=== PATIENT | female | born 2000 | race Caucasian/White ===

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

== ENCOUNTER 2019-01-08 21:14 | Day surgery (SDC) | payer BC ==
[2019-01-08 22:06] VITALS: BMI 30.7
[2019-01-08] MEDS ORDERED: hydrALAZINE 20 MG/ML VIAL SLOW IVP PRN (22:14)
[2019-01-08] MEDS ORDERED: Acetaminophen 500 MG TAB PO SCH (22:30)
[2019-01-08 23:31] LABS: Bilirubin Negative (Negative); Blood, Urine 2+ (Negative); Clarity Turbid (Clear); Glucose, Urine (Dipstick) Normal (Negative); Leukocyte 500 Leu/uL (Negative); Nitrite Negative (Negative); Protein, Urine (Dipstick) 100 mg/dL (Neg-Trace); Squamous Epithelial 0-3 HPF (0-3); Urobilinogen Normal mg/dL (Less than 2); WBC/HPF Greater than 50 HPF (0-3)
--- NOTE | 2019-01-08 23:37 | PDOC.FPRHP ---
- History of Present Illness Chief Complaint: Abdominal pain History of Present Illness: 18 year old at 30.0 wks presents with a 1 day history of right lower back pain that radiates to right lower quadrant and groin. Patient states it came on last night and describes it as a "pressure-like" pain associated with abdominal tightening. The pain last night lasted for about an hour before resolving after drinking cold water. Patient states she woke up this morning with the same pain and it has not resolved. Patient did not take any tylenol. She tried drinking water, but it did not help. She states that no particular movements worsen the pain. She denies any recent trauma or muscular strains. Patient endorses history of UTI x2 during this . She states that this does not feel like her past UTI's. She denies any dysuria or urinary hesitancy. Patient denies any vaginal bleeding, vaginal discharge, LoF. She denies any fever or chills. - Allergies/Adverse Reactions Allergies Allergy/AdvReac Type Severity Reaction Status Date / Time Sulfa (Sulfonamide Allergy Mild Nausea Verified 01/08/19 22:03 Antibiotics) - Home Medications Medication Instructions Recorded Confirmed Type Pnv No.95/Ferrous Fum/Folic AC 1 tab PO DAILY 12/24/18 12/24/18 History [ Caplet] - History PMHx: PSHx: FHx: Social: - Vital signs BP: [] HR: [] RR: [] Tmax: [] Pox: []% on [] Wt: [] FMR H&P: Upper Level - Plan Date/Time: 01/08/19 2331 I, [], have evaluated this patient and agree with findings/plan as outlined by internal carver resident. Pertinent changes/additions are listed here.
[2019-01-08 23:38] LABS: Bacteria/HPF Rare-Few HPF (None Seen); Renal Epithelial None Seen HPF (None Seen)
--- NOTE | 2019-01-08 23:39 | PDOC.FPROB ---
FMR OB H&P: HPI - History of Present Illness Chief Complaint: Abdominal pain Indentification: at 30.0 wks History of Present Illness: 18 year old at 30.0 wks presents with a 1 day history of right lower back pain that radiates to right lower quadrant and groin. Patient states it came on last night and describes it as a "pressure-like" pain associated with abdominal tightening. The pain last night lasted for about an hour before resolving after drinking cold water. Patient states she woke up this morning with the same pain and it has not resolved. Patient did not take any tylenol. She tried drinking water, but it did not help. She states that no particular movements worsen the pain. She denies any recent trauma or muscular strains. Patient endorses history of UTI x2 during this . She states that this does not feel like her past UTI's. She denies any dysuria or urinary hesitancy. Patient denies any vaginal bleeding, vaginal discharge, LoF. She denies any fever or chills. Primary Care Physician: Dr. Novak FMR OB H&P: Current - Care : 2 Para: 0010 Gestational age: 30.0 wks Due date: 03/19/2019 - OB Labs 1 hour gtt: Abnormal FMR OB H&P: History - Past Medical History PMH: Asthma - OB History OB History: Glucose intolerance (abnormal 1h GTT, neg 3h GTT) - CONCESSION ATTENDANT History CONCESSION ATTENDANT History: Denies history of STD's - Surgical History Sx History: Denies - Social History Social History: Denies alcohol, tobacco, or drug use - Family History Family History: Father: HTN FMR OB H&P: Medications - Current Home Medications: Medication Instructions Recorded Confirmed Type Pnv No.95/Ferrous Fum/Folic AC 1 tab PO DAILY 12/24/18 12/24/18 History [ Caplet] Nitrofurantoin Monohyd/M-Cryst 100 mg PO BID 5 Days #10 cap 01/09/19 Rx [Macrobid] Allergies/Adverse Reactions: Allergies Allergy/AdvReac Type Severity Reaction Status Date / Time Sulfa (Sulfonamide Allergy Mild Nausea Verified 01/08/19 22:03 Antibiotics) FMR OB H&P: ROS - Review of Systems General: denies: fever/chills, weight/appetite/sleep changes Eyes: denies: vision changes, double vision ENT: denies: nasal congestion, rhinorrhea, sore throat Cardiovascular: reports: edema (ankle swelling). denies: chest pain, palpitation Gastrointestinal: reports: abdominal pain. denies: cramping, nausea, vomiting, diarrhea Genitourinary (Female): denies: dysuria, hematuria, vaginal discharge, vaginal pain, vaginal bleeding, contractions, vaginal pressure Musculoskeletal: denies: pain, stiffness Neurologic: denies: numbness, weakness Integumentary: denies: itching, rash, lesions Hematologic/Lymphatic: denies: prolonged or excessive bleeding FMR OB H&P: Vital Signs - Maternal Vital signs: BP 97/77 Pulse 70 Afebrile - Heart Tones Baseline: 140 Variability: moderate Acceleration: present Deceleration: absent Burt contractions every: None FMR OB H&P: Physical Exam - Physical Exam General: NAD, awake, alert and oriented HEENT: MMM, grossly normal vision, grossly normal hearing Heart: RRR, no murmurs/rubs/gallops General: CTAB, no respiratory distress Abdomen: soft, gravid, bowel sound present Deviation from normal: Mildly TTP in RLQ, mild CVA tenderness on right Musculoskeletal: pulses present, FROM in all four extremities Deviation from normal: Tender to palpation along right lumbar paraspinal musculature Neurological: no tremor, no focal deficit Skin: no rash, capillary refill <2 seconds Lymphatic: no unusual bruising or bleeding Psychiatric: intact recent and remote memory Deviation from normal: Flat affect FMR OB H&P: A/P - Problem List (1) Abdominal pain Status: Acute Code(s): R10.9 - UNSPECIFIED ABDOMINAL PAIN (2) Status: Acute Disposition: 18 year old at 30.0 wks presents with right lower back pain 1. Back pain likely 2/2 UTI - Right lower back pain radiating to right groin and RLQ - Hx of multiple UTI's in this - Encourage PO intake - No evidence of trauma, although TTP in right paraspinal musculature - Differential includes UTI, nephrolathiasis, and MSK pain - UA positive for 2+ blood, 500 LE's, and >50 WBC - Will give 1g Rocephin and d/c home on macrobid - Urine sent for culture - May also be underlying MSK pain. Advised patient to stretch and take tylenol - Hematuria on UA likely 2/2 UTI; however, will need follow up to ensure this resolves after treatment for UTI - Advised to take antibiotics and follow up with PCP 2. - Uncomplicated - Abnormal 1h GTT with reported normal 3h GTT - Routine PNC Dispo: Plan for d/c home with close follow up to ensure resolution of UTI and improvement in symptoms. Discussion: Date/Time: 01/08/19 3898 This H&P was discussed with Dr. Hannah who agrees with the above documentation and plan. Signature: Ginna Castro, PGY-3 Addendum - Attending - Attending Attestation Date/Time: 01/11/19 0122 I personally evaluated the patient and discussed the management with Dr. Castro I agree with the History, Examination, Assessment and Plan documented above with any addition or exceptions noted below. vital signs reviews and wnl right sided paraspinal tenderness +/_ cva tenderness UA + for blood, bacteria, LE, WBC UTI- rocephin now with macrobid for home f/u in the next few days with primary ob
[2019-01-09] MEDS ORDERED: Lidocaine 1% (PF) 30 ML VIAL FS PRN (00:20)
[2019-01-09] MEDS ORDERED: Lidocaine 1% (PF) 30 ML VIAL ONE (00:21)
[2019-01-09] MEDS ORDERED: cefTRIAXone\\ROCEPHIN 1 GM in Sodium Chloride 0.9% 100 ML IVPB SCH (01:00)
[2019-01-09] MEDS ORDERED: cefTRIAXone\\ROCEPHIN 1 GM VIAL IM SCH (01:00)
[2019-01-09] MEDS ORDERED: Nitrofurantoin Monohyd/M-Cryst 100 MG CAP PO SCH (09:00)
== END 2019-01-09 00:50 | disposition home or self-care (01) ==
LOC: L&D/OP 21:14
PROVIDERS: ATTEND Family Medicine
DX: O23.43 Unspecified infection of urinary tract in pregnancy, third trimester (principal); B95.8 Unspecified staphylococcus as the cause of diseases classified elsewhere; O99.513 Diseases of the respiratory system complicating pregnancy, third trimester; J45.909 Unspecified asthma, uncomplicated; Z88.2 Allergy status to sulfonamides; Z3A.30 30 weeks gestation of pregnancy
CPT/HCPCS: 81001; 87077; 87086; 87186; 96372; 99283; A4353; J0696; J2001; J3490

== ENCOUNTER 2019-03-15 16:11 | Inpatient (IN) | payer BC ==
[~2019-03-15 16:11] MED LIST: Dexamethasone 20 MG/5 ML VIAL ONE; Ketorolac Tromethamine 30 MG/ML VIAL ONE; Ondansetron PF 4 MG/2 ML Vial ONE; ePHEDrine 50 MG/ML VIAL ONE
[2019-03-15 16:47] VITALS: BMI 32.5
[2019-03-15] MEDS ORDERED: Bicitra 30 ML UDCUP ONE (17:01)
[2019-03-15] MEDS ORDERED: hydrALAZINE 20 MG/ML VIAL SLOW IVP PRN ×2 (17:02→21:16)
[2019-03-15] MEDS ORDERED: Ondansetron PF 4 MG/2 ML Vial IVP PRN ×3 (17:02→21:16)
[2019-03-15] MEDS ORDERED: Promethazine HCl 25 MG/ML VIAL IM PRN ×2 (17:02→18:08)
[2019-03-15 17:15] LABS: Hemoglobin 10.8 g/dL (12.0-16.0); Mean Corpuscular HGB CONC 32.5 g/dL (32.0-36.0); Mean Corpuscular Hemoglobin 26.2 pg (25.0-35.0); Mean Corpuscular Volume 80.5 fL (78.0-98.0); Mean Platelet Volume 8.2 fL (7.4-10.4); Platelet Count 333 thou/uL (130-400); RBC Distribution Width 14.9 % (11.5-14.5); Red Blood Cell (RBC) Count 4.12 mill/uL (4.00-5.20); White Blood Cell (WBC) Count 10.7 thou/uL (4.8-10.8)
[2019-03-15] MEDS ORDERED: CEFAZOLIN 2 GM in Premix Bag 1 BAG IVPB SCH (17:15)
[2019-03-15] MEDS ORDERED: Lactated Ringer's 1,000 ML IV SCH ×2 (17:15)
[2019-03-15] MEDS ORDERED: Bicitra 30 ML UDCUP PO SCH (17:15)
[2019-03-15] MEDS ORDERED: MORPHINE 5 MG/10 ML PF VIAL ONE (17:23)
[2019-03-15] MEDS ORDERED: ePHEDrine/0.9% NaCl/PF SYRINGE 50 mg/10 ml ONE (17:34)
[2019-03-15] MEDS ORDERED: Oxytocin 10 UNITS/ML VIAL ONE (17:38)
[2019-03-15 17:53] LABS: Syphilis Antibody Nonreactive (Nonreactive); Syphilis Antibody Index 0.05 S/CO (<1.00 Non-Reactive)
[2019-03-15 17:54] LABS: HBSAg Index 0.17 S/CO (0-0.99); Hep B Surf Ag Non-Reactive S/CO (NonReactive)
[2019-03-15] MEDS ORDERED: PHENYLEPHRINE-NS 100 MCG/ML 10 ML SYRINGE ONE (18:00)
[2019-03-15] MEDS ORDERED: Ondansetron PF 4 MG/2 ML Vial ONE (18:01)
[2019-03-15] MEDS ORDERED: Ketorolac Tromethamine 30 MG/ML VIAL ONE (18:01)
[2019-03-15] MEDS ORDERED: Dexamethasone 4 mg/ml Vial ONE (18:01)
[2019-03-15] MEDS ORDERED: Naloxone HCl 0.4 mg/ml Vial IV PRN (18:08)
[2019-03-15] MEDS ORDERED: Promethazine HCl 25 MG SUPP PR PRN (18:08)
[2019-03-15] MEDS ORDERED: diphenhydrAMINE 50 MG/ML VIAL IVP PRN (18:08)
[2019-03-15] MEDS ORDERED: L&D-Morphine 4 MG/ML VIAL SLOW IVP PRN (18:08)
[2019-03-15] MEDS ORDERED: HYDROmorphone 2 MG/ML VIAL SLOW IVP PRN (18:08)
[2019-03-15] MEDS ORDERED: Naloxone HCl 0.4 mg/ml Vial IVP PRN ×2 (18:08)
[2019-03-15] MEDS ORDERED: Meperidine HCl/PF 25 MG/ML VIAL SLOW IVP PRN (18:08)
[2019-03-15] MEDS ORDERED: Ondansetron HCl/PF 4 MG/2 ML Vial IVP PRN (18:08)
[2019-03-15 18:10] LABS: Actual Bicarbonate (HCO3v) 16 mEq/L (22-28)
[2019-03-15 18:11] LABS: pH (Cord, venous) 7.09 (7.32-7.43)
[2019-03-15 18:13] LABS: Actual Bicarbonate (HCO3a) 16.6 mEq/L (22-28); Base Excess (BEa) -15.5 mEq/L (-2.0 to +3.0)
[2019-03-15] MEDS ORDERED: Communication Order-Pharmacy FS SCH (18:15)
--- NOTE | 2019-03-15 18:28 | PDOC.OPDEL ---
OB Operative/Delivery Note Delivery Dr/Surgeon: Kishore Assist: Jessica Pre-Delivery Diagnosis: non-reassuring tracing Procedure/Post Delivery Dx: primary low transverse CS Anesthesia: epidural - Additional Findings/Plan Compilations/Other Findings: Date of Procedure: 03/15/2019 Surgeon: Kishore Salinas Surgeon: Jessica Procedure: Primary low transverse caesarean section Preoperative Diagnosis: 1)Term intrauterine 2)Non-reassuring heart tones Postoperative Diagnosis: 1)same as above Anesthesia: spinal Indications: The patient is a 18 year old female at 39 weeks gestation who presented to L&D with recurrent decelerations. She was not timo regularly and due to distress proceeded with . Procedure in Detail: After risks, benefits, and alternatives were explained to the patient, she gave informed consent. Pre-operative antibiotics included Cefazolin 2 gram IV. The patient was taken to the operating room and spinal anesthesia was initiated. She was placed in the supine position with a left tilt and prepped and draped in usual sterile fashion. A Pfannenstiel incision was made with a scalpel and carried down to the level of the fascia which was sharply nicked. The fascial cut was extended bilaterally with Batista sissors. The inferior and superior edges of the cut fascial edges were elevated with Dolly clamps and the underlying rectus muscles were bluntly dissected free. The recti were divided digitally and retracted manually. The peritoneum was entered bluntly and retracted manually. Bladder blade was placed. A low transverse score was made with the scalpel and the uterus was entered in the midline with the scalpel. Heavy meconium was seen. The was noted to be vertex and was delivered by fundal pressure and vacuum assistance. Mouth and nares were bulb suctioned. Cord clamped and cut and grossly normal female infant was handed to waiting nurse. Cord blood and cord segment were obtained. Placenta was manually extracted, found to be intact with 3 vessel cord and sent for pathology. The uterus was externalized and the endometrium was curetted with a dry lap. The bladder blade was replaced and the uterus was closed with a running locking 0- Vicryl suture followed by a running non-locking imbricating suture. Following this hemostasis was noted. The abdomen was irrigated with saline and suctioned free of clots. The uterus was internalized and the hysterotomy was again noted to be hemostatic. The peritoneum was closed with 3-0 Vicryl. The fascia was closed with a running non-locking PDS suture. The subcutaneous tissue was irrigated and there were no bleeders. Subcutaneous layer closed with simple interrupted stitch. The skin was approximated with baljit and a pressure dressing was placed. All counts were correct. The patient tolerated the procedure well and was taken to the recovery room in stable condition. QBL: 360 mL Complications: None Specimens: Cord blood, segment and placenta sent to lab Findings: Grossly normal female Drains: Ellis to gravity draining clear urine Post delivery plan: routine recovery
[2019-03-15] MEDS ORDERED: NS / Oxytocin 40 units/1000ml 1,000 ML ONE (19:24)
[2019-03-15] MEDS ORDERED: diphenhydrAMINE 25 MG CAP PO PRN (21:16)
[2019-03-15] MEDS ORDERED: Meperidine HCl/PF 25 MG/ML VIAL IM PRN (21:16)
[2019-03-15] MEDS ORDERED: Lanolin Ointment 7 GM TUBE TOP PRN (21:16)
[2019-03-15] MEDS ORDERED: NS / Oxytocin 40 units/1000ml 1,000 ML IV SCH (21:16)
[2019-03-15] MEDS ORDERED: Bisacodyl 10 MG SUPP PR PRN (21:16)
[2019-03-15] MEDS ORDERED: Sodium Chloride 0.9% 10 ML ONE (21:59)
[2019-03-15] MEDS ORDERED: Ibuprofen 800 MG TAB PO SCH (22:00)
[2019-03-15] MEDS ORDERED: Docusate Calcium (SURFAK) 240 MG CAP PO SCH (22:00)
[2019-03-16] MEDS ORDERED: Sodium Chloride 0.9% 10 ML ONE ×3 (00:22→06:24)
[2019-03-16] MEDS: Ketorolac Tromethamine 30 MG/ML VIAL IVP SCH ×4 (00:26→19:01)
[2019-03-16 03:22] LABS: Hemoglobin 10.4 g/dL (12.0-16.0); Mean Corpuscular HGB CONC 33.7 g/dL (32.0-36.0); Mean Corpuscular Hemoglobin 26.7 pg (25.0-35.0); Mean Corpuscular Volume 79.3 fL (78.0-98.0); Platelet Count 295 thou/uL (130-400); RBC Distribution Width 14.9 % (11.5-14.5); Red Blood Cell (RBC) Count 3.89 mill/uL (4.00-5.20); White Blood Cell (WBC) Count 14.1 thou/uL (4.8-10.8)
[2019-03-16] MEDS: Ferrous Sulfate 325 MG TAB PO SCH ×2 (08:29→16:29)
[2019-03-16] MEDS: Prenatal Vitamin 1 TAB PO SCH (08:54)
[2019-03-16] MEDS: Docusate Calcium (SURFAK) 240 MG CAP PO SCH ×2 (08:55→23:17)
[2019-03-16] MEDS ORDERED: Adacel (T-DAP) 0.5 ML SYRINGE IM ONE (09:00)
[2019-03-16] MEDS: Simethicone Chewable 80 MG TAB PO PRN ×2 (10:55→15:21)
[2019-03-16] MEDS: HYDROcodone/Acetaminophen 5/325 mg Tablet PO PRN (15:18)
[2019-03-16] MEDS: Ibuprofen 800 MG TAB PO SCH (23:17)
[2019-03-17] MEDS: Simethicone Chewable 80 MG TAB PO PRN (04:23)
[2019-03-17] MEDS: HYDROcodone/Acetaminophen 5/325 mg Tablet PO PRN ×2 (04:24→21:51)
[2019-03-17] MEDS: Ibuprofen 800 MG TAB PO SCH ×3 (05:34→21:49)
[2019-03-17] MEDS: Ferrous Sulfate 325 MG TAB PO SCH ×2 (07:01→13:57)
[2019-03-17] MEDS: Docusate Calcium (SURFAK) 240 MG CAP PO SCH ×2 (08:21→21:50)
[2019-03-17] MEDS: Prenatal Vitamin 1 TAB PO SCH (08:21)
[2019-03-18] MEDS: Ibuprofen 800 MG TAB PO SCH ×3 (05:57→21:38)
[2019-03-18] MEDS: Prenatal Vitamin 1 TAB PO SCH (10:43)
[2019-03-18] MEDS: Docusate Calcium (SURFAK) 240 MG CAP PO SCH ×2 (10:43→21:38)
[2019-03-18] MEDS: Ferrous Sulfate 325 MG TAB PO SCH ×2 (10:45→23:25)
[2019-03-19] MEDS: Ibuprofen 800 MG TAB PO SCH (05:44)
[2019-03-19] MEDS: HYDROcodone/Acetaminophen 5/325 mg Tablet PO PRN (05:46)
[2019-03-19 07:50] VITALS: BP 116/69; TEMP 97.6
[2019-03-19] MEDS: Prenatal Vitamin 1 TAB PO SCH (09:46)
[2019-03-19] MEDS: Ferrous Sulfate 325 MG TAB PO SCH (09:46)
[2019-03-19] MEDS: Docusate Calcium (SURFAK) 240 MG CAP PO SCH (09:46)
== END 2019-03-19 12:25 | disposition home or self-care (01) | DRG 788 ==
LOC: L&D/OP 16:11 → L&D 17:09 → 3SW 20:51
PROVIDERS: ADMIT Family Medicine; ATTEND Family Medicine
PROC: 10D00Z1 Extraction of Products of Conception, Low, Open Approach (ICD-10-PCS; principal; 2019-03-15)
DX: O76 Abnormality in fetal heart rate and rhythm complicating labor and delivery (principal); O77.0 Labor and delivery complicated by meconium in amniotic fluid; Z3A.39 39 weeks gestation of pregnancy; Z37.0 Single live birth
CPT/HCPCS: 36415; 51702; 82805; 85027; 86780; 86850; 86900; 86901; 87340; 88307; 99285; J0690; J1100; J1885; J2274; J2310; J2405; J2590; J3490; Q0163

== ENCOUNTER 2023-03-19 09:40 | Outpatient (CLI) | payer BC | END 2023-03-19 09:41 | disposition home or self-care (01) | LOC: BICULT 09:40 | PROVIDERS: ATTEND Physician Assistant | DX: N63.20 Unspecified lump in the left breast, unspecified quadrant (principal); N63.10 Unspecified lump in the right breast, unspecified quadrant | CPT/HCPCS: 76642 ==